=== PATIENT | female | born 1930 | race Hispanic/Latino ===

== ENCOUNTER 2018-07-05 15:24 | Emergency (ER) | payer MEDICARE, BC ==
[2018-07-05 15:40] VITALS: BMI 28.3
[2018-07-05 15:45] VITALS: RESP 18; TEMP 97.7
--- NOTE | 2018-07-05 15:46 | ED PDOC ---
Arrival/HPI - General Chief Complaint: High Blood Pressure Time Seen by Provider: 07/05/18 15:24 Historian: Patient, Family - History of Present Illness Narrative History of Present Illness (Text): 07/05/18 15:42 88 year old female, with past medical history of hypertension, presents to the ED for evaluation of elevated blood pressure since prior to arrival. Patient states she was at Dr. Cifuentes's office for evaluation of an umbilical hernia, where she had an elevated systolic blood pressure of 218. Patient was subsequently referred to the ED by Dr. Cifuentes for medical evaluation. As per daughter, the umbilical hernia has been protruding since past 2 months and was reduced by Dr. Cifuentes at the office prior to arrival. Patient additionally reports chronic vision changes and does not recall her last vision evaluation. Patient denies any other associated somatic complaints. Patient denies any fevers, chills, headache, dizziness, chest pain, shortness of breath, dyspnea on exertion, cough, abdominal pain, nausea, vomiting, diarrhea, back pain, neck pain, or any other complaints. PMD: Dr. Cifuentes Time/Duration: Prior to Arrival Symptom Onset: Gradual Symptom Course: Unchanged Activities at Onset: Light Context: Home Past Medical History - Provider Review Nursing Documentation Reviewed: Yes - Cardiac Hx Pacemaker: No - Pulmonary Hx Respiratory Disorders: No - Neurological Hx Paralysis: No - HEENT Hx Cataracts: Yes - Renal Hx Renal Disorder: No - Endocrine/Metabolic Hx Endocrine Disorders: No - Hematological/Oncological Hx Blood Transfusions: No Hx Blood Transfusion Reaction: No - Integumentary Hx Dermatological Disorder: No - Musculoskeletal/Rheumatological Hx Musculoskeletal Disorders: Yes - Gastrointestinal Hx Gastrointestinal Ulcer: Yes Other/Comment: Cholecystectomy - Genitourinary/Gynecological Hx Genitourinary Disorders: No - Psychiatric Hx Emotional Abuse: No Hx Physical Abuse: No Hx Substance Use: No - Surgical History Hx Cholecystectomy: Yes - Anesthesia Hx Anesthesia: Yes Hx Anesthesia Reactions: No Hx Malignant Hyperthermia: No - Suicidal Assessment Feels Threatened In Home Enviroment: No Family/Social History - Physician Review Nursing Documentation Reviewed: Yes Family/Social History: Unknown Family HX Smoking Status: Never Smoked Hx Alcohol Use: No Hx Substance Use: No Allergies/Home Meds Allergies/Adverse Reactions: Allergies No Known Allergies Allergy (Verified 08/31/15 08:04) Review of Systems - Physician Review All systems were reviewed & negative as marked: Yes - Review of Systems Constitutional: absent: Fevers Respiratory: absent: SOB, Cough Cardiovascular: Other (Elevated blood pressure). absent: Chest Pain Gastrointestinal: absent: Abdominal Pain, Diarrhea, Nausea, Vomiting Genitourinary Female: absent: Dysuria, Urine Output Changes Musculoskeletal: absent: Back Pain, Neck Pain Skin: absent: Rash Neurological: absent: Headache, Dizziness Endocrine: absent: Diaphoresis Psychiatric: absent: Anxiety Physical Exam - Physical Exam Narrative Physical Exam (Text): 07/05/18 15:47 Gen: VS reviewed, alert, well developed, well nourished, nontoxic, mild distress. ENT: normal pharynx. Eye: EOMI, PERRL. Neck: no JVD, supple, no adenopathy. CV: regular rate, regular rhythm, no rubs, no murmur, no gallops, S1, S2, pulses equal and strong. Pulm: no distress, clear to auscultation, no wheeze, no rhonchi, breath sounds equal, no rales. Abd: soft, nontender, no guarding, no rebound, no rigidity, normal bowel sounds. Soft, reducible periumbilical hernia. Ext: no edema. Skin: good color, no rash, no cyanosis. Psych: responds appropriately to questions, normal affect. Neuro: oriented x 3, CN2-12 intact grossly, motor intact, sensation intact. 07/05/18 15:58 Vital Signs Reviewed: Yes Temperature: Afebrile Blood Pressure: Hypertensive Pulse: Regular Respiratory Rate: Normal Appearance: Positive for: Well-Appearing, Non-Toxic, Comfortable Pain Distress: Mild Mental Status: Positive for: Alert and Oriented X 3 Medical Decision Making ED Course and Treatment: 07/05/18 15:45 Impression: 88 year old female presents to the ED for evaluation of elevated blood pressure. Plan: -- Labs -- Apresoline -- Reassess and disposition Prior Visits: Notes and results from previous visits were reviewed. Progress Notes: 07/05/18 16:17 bloodp ressure spontaneously improved to 170 sbp prior to dose of hydralazine. patient examined at bedside and states that her vision has improved. 07/05/18 18:45 patient seen for transient hypertension, normalized without intervention during emergency department course, vision normalized and patient remained stable. Patient has not been on blood pressure medication for over two years and last BP was metoprolol. I would like to avoid a beta bret for blood pressure control as it is not first line and could cause fatigue in this 88 year young patient.Will start pt on HCTZ at a higher than typical dose considering the patient's recorded blood pressure. Patient understands and agrees with plan and will follow up with pcp within one week. Case discussed with dr. cifuentes and would like pt to follow up within one week. 07/05/18 18:50 - RAD Interpretation Narrative RAD Interpretations (Text): 07/05/18 18:33 CT Head w/o Contrast: FINDINGS: HEMORRHAGE: No intracranial hemorrhage. BRAIN: No mass effect or edema. Age related senescent changes. VENTRICLES: Unremarkable. No hydrocephalus. CALVARIUM: Unremarkable. PARANASAL SINUSES: Unremarkable as visualized. No significant inflammatory changes. MASTOID AIR CELLS: Unremarkable as visualized. No inflammatory changes. OTHER FINDINGS: None. IMPRESSION: No acute intracranial abnormalities. No significant findings to account for the clinical presentation. No significant interval change compared to the prior examination(s). Injection Machine Operator: Radiologist - Scribe Statement The provider has reviewed the documentation as recorded by the Scribe Aidan Childress. All medical record entries made by the Scribe were at my direction and personally dictated by me. I have reviewed the chart and agree that the record accurately reflects my personal performance of the history, physical exam, medical decision making, and the department course for this patient. I have also personally directed, reviewed, and agree with the discharge instructions and d isposition. Disposition/Present on Arrival - Present on Arrival Any Indicators Present on Arrival: No History of DVT/PE: No History of Uncontrolled Diabetes: No Urinary Catheter: No History of Decub. Ulcer: No History Surgical Site Infection Following: None - Disposition Have Diagnosis and Disposition been Completed?: Yes Diagnosis: Hypertension, Periumbilical hernia Disposition: HOME/ ROUTINE Disposition Time: 18:48 Patient Plan: Discharge Patient Problems: Current Active Problems Problem Status Onset Hypertension Acute Periumbilical hernia Acute Condition: STABLE Discharge Instructions (ExitCare): High Blood Pressure in Adults, Umbilical Hernia, Adult Additional Instructions: return for any new or worsening symptoms. follow up with your doctor within one week-call tomorrow to confirm your next appointment. Prescriptions: Hydrochlorothiazide 25 gm [facility] DAILY #30 powder Forms: [employer] (Serbian)
[2018-07-05 16:14] LABS: BASO # 0.02 K/mm3 (0.0-2.0); BASO % 0.3 % (0.0-3.0); EOS # 0.3 (0.0-0.7); EOS % 4.2 % (1.5-5.0); LYMPH # 1.5 (1.2-3.4); LYMPH % 21.6 % (22.0-35.0); MEAN CORPUSCULAR HEMOGLOBIN 30.8 pg (25.0-35.0); MEAN CORPUSCULAR HGB CONC 33.9 g/dl (31.0-37.0); MEAN PLATELET VOLUME 11.3 fl (7.0-11.0); MONO # 0.4 (0.1-0.6); MONO % 5.6 % (1.0-6.0); RBC 4.22 10^6/uL (3.5-6.1); RED CELL DISTRIBUTION WIDTH 13.7 % (11.5-14.5); WHITE BLOOD COUNT 7.1 10^3/uL (4.5-11.0)
[2018-07-05 16:19] VITALS: O2SAT 95
[2018-07-05 16:38] LABS: ALB/GLOB RATIO 1.4 (1.1-1.8); ALBUMIN 4.5 g/dL (3.0-4.8); ALT/SGPT 14 U/L (7-56); AST/SGOT 27 U/L (14-36); BLOOD UREA NITROGEN 15 mg/dL (7-21); CALCIUM 10.4 mg/dL (8.4-10.5); GFR NON-AFRICAN AMERICAN > 60
[2018-07-05 16:50] LABS: TROPONIN I < 0.01 ng/mL
--- NOTE | 2018-07-05 18:36 | CT ---
Date of service: 07/05/2018 PROCEDURE: CT HEAD WITHOUT CONTRAST. HISTORY: visual disturbance, HTN COMPARISON: 08/25/2015. CT head TECHNIQUE: Axial computed tomography images were obtained through the head/brain without intravenous contrast. Supplemental Coronal and Sagittal projections created and reviewed. Radiation dose: Total exam DLP = 800.87 mGy-cm. This CT exam was performed using one or more of the following dose reduction techniques: Automated exposure control, adjustment of the mA and/or kV according to patient size, and/or use of iterative reconstruction technique. FINDINGS: HEMORRHAGE: No intracranial hemorrhage. BRAIN: No mass effect or edema. Age related senescent changes. VENTRICLES: Unremarkable. No hydrocephalus. CALVARIUM: Unremarkable. PARANASAL SINUSES: Unremarkable as visualized. No significant inflammatory changes. MASTOID AIR CELLS: Unremarkable as visualized. No inflammatory changes. OTHER FINDINGS: None. IMPRESSION: No acute intracranial abnormalities. No significant findings to account for the clinical presentation. No significant interval change compared to the prior examination(s).
[2018-07-05 19:03] VITALS: BP 161/82; PULSE 71
== END 2018-07-05 19:05 | disposition home or self-care (01) ==
LOC: ED 15:24
DX: I10 Essential (primary) hypertension (principal); K42.9 Umbilical hernia without obstruction or gangrene

== ENCOUNTER 2018-08-08 10:34 | Outpatient (CLI) | payer MEDICARE, BC | END 2018-08-08 10:35 | disposition home or self-care (01) | LOC: RAD 10:34 ==